=== PATIENT | male | born 1975 | race African-American/Black ===

== ENCOUNTER 2016-06-09 15:51 | Emergency (ER) | payer OTHER ==
[~2016-06-09] VITALS: Ht 170.2 cm; Wt 70.3 kg
[~2016-06-09 15:51] MED LIST: CYCLOBENZAPRINE5 M2 PO; IBUPROFEN800 M1 PO
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
[2016-06-09 17:43] LABS: ABSOLUTE BASOPHIL COUNT 0 /CUMM (0.0-0.2); ABSOLUTE MONOCYTE COUNT 0.7 /CUMM (0.10-0.60); HEMATOCRIT 36.9 % (42-52)
[2016-06-09 17:45] LABS: ABSOLUTE EOSINOPHIL COUNT 0.2 /CUMM (0.0-0.7); ABSOLUTE GRANULOCYTE CT 7.3 /CUMM (1.4-6.5); ABSOLUTE LYMPH COUNT 1.2 /CUMM (1.2-3.4); BASOPHIL % 0.5 % (0.0-2.0); EOSINOPHIL % 2.2 % (0-5); MEAN CORPUSCULAR HGB 27.4 PG (27.0-31.0); MEAN CORPUSCULAR HGB CONC 32.5 G/DL (33.0-37.0); MEAN CORPUSCULAR VOLUME 84.4 FL (80.0-94.0); MEAN PLATELET VOLUME 8.4 FL (7.4-10.4); PLATELET COUNT 208 /CUMM (130-400); RBC DISTRIBUTION WIDTH 13.1 % (11.5-14.5); RED BLOOD CELL CT 4.37 /CUMM (4.70-6.10); WHITE BLOOD CELL COUNT 9.3 /CUMM (4.8-10.8)
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
[2016-06-09] MEDS ORDERED: KEFLEX500 M1 PO (20:31)
[2016-06-09 21:24] VITALS: BP 122/78
== END 2016-06-09 21:25 ==
LOC: ERH 15:51
PROVIDERS: Emergency Medicine
DX: L02.215 Cutaneous abscess of perineum (principal)
CPT/HCPCS: 74177; 87040

== ENCOUNTER 2017-03-07 17:08 | Emergency (ER) | payer SELFPAY ==
[~2017-03-07] VITALS: Ht 167.6 cm; Wt 71.7 kg
[~2017-03-07 17:08] MED LIST changes: +BACTROBAN15 GM TOP; +CIPRO500 M1 PO; +KEFLEX500 M1 PO
[2017-03-07 17:12] VITALS: BP 137/82
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
[2017-03-07] MEDS ORDERED: PREDNISONE10 M2 PO (18:36)
[2017-03-07] MEDS ORDERED: DOXYCYCLINE HY100 M4 PO (18:36)
[2017-03-07] MEDS ORDERED: HYDROXYZINE HCL50 M1 PO (18:36)
[2017-03-07] MEDS ORDERED: TRIAMCINOLONE A15 G2 TOP (18:36)
== END 2017-03-07 18:52 ==
LOC: ERH 17:08
DX: L30.9 Dermatitis, unspecified (principal)